=== PATIENT | male | born 1950 | race Caucasian/White ===

== ENCOUNTER 2022-06-08 10:09 | Emergency (ER) | payer BC, MEDICAID ==
[~2022-06-08] VITALS: Ht 177.8 cm; Wt 91.0 kg
[2022-06-08 10:17] VITALS: BP 107/77
[2022-06-08] MEDS ORDERED: FURO20TA4 PO (10:21)
[2022-06-08] MEDS ORDERED: ATOR20TA65 PO (10:21)
[2022-06-08] MEDS ORDERED: LEVO25TA2 PO (10:21)
[2022-06-08] MEDS ORDERED: TETANUS, DIPHTHERIA, PERTUSSIS VAC/PF 0.5ML (>10YR OLD) IM ONE (11:00)
[2022-06-08] MEDS ORDERED: LIDOCAINE HCL 1% 20ML VIAL (Pyxis) INJ INFIL ONE (11:00)
[2022-06-08] MEDS ORDERED: LIDOCAINE HCL 1% 10 MG/ML 10ML VIAL INJ STA (11:20)
[2022-06-08] MEDS ORDERED: IBUP-2029 PO (12:03)
[2022-06-08] MEDS ORDERED: BACITRACIN ZINC OINT UDPKT TOP ONE (12:15)
== END 2022-06-08 13:22 | disposition home or self-care (01) ==
LOC: ER 11:01
DX: S61.012A Laceration without foreign body of left thumb without damage to nail, initial encounter (principal); W26.8XXA Contact with other sharp object(s), not elsewhere classified, initial encounter; Y93.89 Activity, other specified; Y92.89 Other specified places as the place of occurrence of the external cause; Y99.8 Other external cause status; E03.9 Hypothyroidism, unspecified; Z79.899 Other long term (current) drug therapy
CPT/HCPCS: 90471; 90715; 99283; Z7610